=== PATIENT | female | born 1945 | race Caucasian/White ===

== ENCOUNTER 2022-03-13 13:34 | Emergency (ER) | payer MEDICARE ==
[2022-03-13 14:06] VITALS: TEMP 98.4
--- NOTE | 2022-03-13 16:18 | ED ---
Extremity Problem HPI - General Chief complaint: Extremity Problem,Nontraumatic Stated complaint: toe infection Time Seen by Provider: 03/13/22 15:55 Source: patient Mode of arrival: ambulatory Limitations: no limitations - History of Present Illness Initial comments: This is a pleasant 76-year-old female presents to emergency room complaining of right leg edema and pain. Patient states that she went to [place] and did some hiking and may have injured her leg there. Patient then noted that she had some swelling to her right lower leg with pain in the calf area. Patient also thought her right great toe was more swollen. Patient states after driving home yesterday which was an [address] she had some discoloration of the toe and lower leg. She thought it had a bluish hue to it. However, sensation is intact. She is able to ambulate without difficulty. Patient also states that she has had symptoms of an upper respiratory infection for the last 10 days. She denies any shortness breath or chest pain. No headache, no fever or chills, no changes in vision or hearing, no sore throat or difficulty with speech, no neck pain, no chest pain or shortness of breath, no abdominal pain, no nausea or vomiting, no changes in urination or bowel movements, no numbness or tingling, no skin rashes or lesions. Past medical, surgical, social, and family history reviewed. MD Complaint: extremity pain, extremity swelling - Related Data Allergies Allergy/AdvReac Type Severity Reaction Status Date / Time epinephrine Allergy Unknown Verified 03/13/22 14:06 Tetracyclines Allergy Unknown Verified 03/13/22 14:06 Review of Systems ROS Statement: Those systems with pertinent positive or pertinent negative responses have been documented in the HPI. ROS Other: All systems not noted in ROS Statement are negative. Past Medical History Past Medical History: Hypertension History of Any Multi-Drug Resistant Organisms: None Reported Past Surgical History: No Surgical Hx Reported Past Psychological History: No Psychological Hx Reported Smoking Status: Never smoker Past Alcohol Use History: None Reported Past Drug Use History: None Reported General Exam Limitations: no limitations General appearance: alert, in no apparent distress Head exam: Present: atraumatic, normocephalic, normal inspection Eye exam: Present: normal appearance, PERRL, EOMI. Absent: scleral icterus, conjunctival injection, periorbital swelling ENT exam: Present: normal exam, normal oropharynx, mucous membranes moist, normal external ear exam Neck exam: Present: normal inspection, full ROM. Absent: tenderness, meningismus, lymphadenopathy Respiratory exam: Present: normal lung sounds bilaterally. Absent: respiratory distress, wheezes, rales, rhonchi, stridor Cardiovascular Exam: Present: regular rate, normal rhythm, normal heart sounds. Absent: systolic murmur, diastolic murmur, rubs, gallop, clicks GI/Abdominal exam: Present: soft, normal bowel sounds. Absent: distended, tenderness, guarding, rebound, rigid Extremities exam: Present: normal inspection, full ROM, normal capillary refill, pedal edema (Scant edema, if any involving the right lower leg. Pulses are intact. No erythema. No break in skin integrity. No evidence of infectious etiology. Capillary refill less than 2 seconds). Absent: tenderness, joint swelling, calf tenderness Back exam: Present: normal inspection Neurological exam: Present: alert, oriented X3, CN II-XII intact, normal gait. Absent: abnormal gait, motor sensory deficit Psychiatric exam: Present: normal affect, normal mood Skin exam: Present: warm, dry, intact, normal color. Absent: rash Course Vital Signs 03/13/22 03/13/22 14:01 17:02 Temperature 98.4 F Pulse Rate 89 90 Respiratory 16 18 Rate Blood Pressure 174/81 170/080 O2 Sat by Pulse 97 97 Oximetry Medical Decision Making - Medical Decision Making Patient comes in complaining of some discomfort in her right calf area. There is no evidence of infectious process. No evidence of neurovascular insult. Homans test is negative. There is no palpable cord. Suspect this is muscular irritation from patient hiking in [place]. Patient was told to return to the ER for any signs or symptoms worsen. Told to return immediately if any other problems arise. All questions answered. Treatment plan discussed. Patient in agreement Every effort has been made to ensure accuracy of this dictation. However, due to the limitations of electronic medical records and dictation devices, errors in charting still occur. Supervising Dr. Heaton - Radiology Data Radiology results: report reviewed, image reviewed venous Doppler of the right lower extremity interpreted by me shows no evidence of acute pathology. Concur with radiology Disposition Clinical Impression: Strain of right calf muscle Disposition: HOME SELF-CARE Condition: Good Instructions (If sedation given, give patient instructions): Muscle Strain (ED) Additional Instructions: Follow-up with your regular physician as directed. Return to the ER immediately if any symptoms worsen, new symptoms arise, or any other problems develop. If you still have pain after one week, follow-up with your regular doctor for repeat Doppler Is patient prescribed a controlled substance at d/c from ED?: No Referrals: Nonstaff,Physician [REFERRING] - 1-2 days Time of Disposition: 18:24
--- NOTE | 2022-03-13 16:58 | US ---
EXAMINATION TYPE: US venous doppler duplex LE RT DATE OF EXAM: 03/13/2022 4:37 PM COMPARISON: NONE CLINICAL HISTORY: Right leg pain and edema. Patient states just going on a trip riding [place] ll[place]. No hx blood clot. Not on blood thinners. SIDE PERFORMED: Right TECHNIQUE: The lower extremity deep venous system is examined utilizing real time linear array sonog kristopher with graded compression, doppler sonography and color-flow sonography. VESSELS IMAGED: Common Femoral Vein Deep Femoral Vein Greater Saphenous Vein * Femoral Vein Popliteal Vein Small Saphenous Vein * Proximal Calf Veins (* superficial vessels) Right Leg: Negative for DVT IMPRESSION: No evidence of deep vein thrombosis in the right leg.
[2022-03-13 17:03] VITALS: BP 170/080; PULSE 90; RESP 18
== END 2022-03-13 18:34 | disposition home or self-care (01) ==
LOC: EC 13:34
DX: S86.911A Strain of unspecified muscle(s) and tendon(s) at lower leg level, right leg, initial encounter (principal); I10 Essential (primary) hypertension; Z88.1 Allergy status to other antibiotic agents; Z88.6 Allergy status to analgesic agent; X58.XXXA Exposure to other specified factors, initial encounter; Y93.01 Activity, walking, marching and hiking; Y92.89 Other specified places as the place of occurrence of the external cause
CPT/HCPCS: 99283

== ENCOUNTER 2023-03-19 01:05 | Emergency (ER) | payer OTHER, MEDICARE ==
[2023-03-19 01:44] VITALS: RESP 18; TEMP 97.8
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
[2023-03-19 04:06] VITALS: BP 168/89; PULSE 76
== END 2023-03-19 03:46 | disposition home or self-care (01) ==
LOC: EC 01:05
DX: I44.0 Atrioventricular block, first degree (principal); I10 Essential (primary) hypertension; V43.62XA Car passenger injured in collision with other type car in traffic accident, initial encounter; Y92.410 Unspecified street and highway as the place of occurrence of the external cause
CPT/HCPCS: 71046; 93005; 99284